=== PATIENT | female | born 1930 | race Caucasian/White ===

== ENCOUNTER 2017-01-22 10:13 | Outpatient (CLI) | payer OTHER, BC ==
--- NOTE | 2017-01-22 11:23 | DIAGNOSTIC IMAGING REPORT ---
PROCEDURE: DEXA BONE DENSITY STUDY CLINICAL INDICATION: POSTMENOPAUSAL COMPARISON: DEXA 12/28/2013 FINDINGS: LUMBAR SPINE: Bone mineral density 1.070 g/cm2, T score 0.2 normal which represents a of 4.2% decrease from the previous study LEFT HIP: Bone mineral density 0.997 g/cm2, T score 0.5 normal which represents a 5.8% improvement from the previous study LEFT FEMORAL NECK: Bone mineral density 0.756 g/cm2, T score -0.8 normal which represents a 7% decrease from the previous study FRACTURE RISK CALCULATION ( when applicable): 10-year fracture risk of a major osteoporotic fracture and of a hip fracture not reported because all T-scores at or above -1.0 (T score greater or equal to -1.0 to: NORMAL) (T score from -1.1 to -2.4: OSTEOPENIA) (T score ess than or equal to -2.5: OSTEOPOROSIS) IMPRESSION: 1. Normal with a 5.8% improvement in the left hip, decreases in the lumbar spine and femoral neck of 4.2 %and 7%.
== END 2017-01-22 23:00 ==
LOC: XR SRH 10:13
DX: Z78.0 Asymptomatic menopausal state (principal); Z13.820 Encounter for screening for osteoporosis